=== PATIENT | female | born 1985 | race Caucasian/White ===

== ENCOUNTER 2018-04-03 07:57 | Emergency (ER) | payer BC ==
[~2018-04-03 07:57] MED LIST: ACET-3017 PO; ALB0.5 IH; ALBU8.5H IH; AMOX-362 PO; DOXY-179 PO; DUL100/5PT INH; FLUO-202 PO; GUAI-545 PO; HYDR-385 PO; IBU800 PO; IRON1TAB55 PO; METR-1 PO; MULT-865 PO; PER PO; PNV1TABL70 PO; PRO25 PO
[2018-04-03] MEDS ORDERED: NS(*) 0.9% 1000 ML BAG 1,000 ML IV ONE (08:25)
[2018-04-03 08:32] LABS: PLATELET COUNT, AUTOMATED 356 K/uL (150-450)
--- NOTE | 2018-04-03 08:39 | EKG ---
FACILITY: [facility] - [place] PATIENT NAME: DIPAK KENNEY : [id number] MR: [id number] V: [id number] EXAM DATE: ORDERING PHYSICIAN: TIMOTHY LEWSI TECHNOLOGIST: ANAMARIA Giraldo Reason : CHEST TIGHTNESS Blood Pressure : / mmHG Vent. Rate : 082 BPM Atrial Rate : 082 BPM P-R Int : 160 ms QRS Dur : 086 ms QT Int : 370 ms P-R-T Axes : 068 062 033 degrees QTc Int : 432 ms Normal sinus rhythm Normal ECG No previous ECGs available Confirmed by RONAN ZAPATA ([id number]) on 04/04/2018 6:24:18 AM Referred By: JOSHUA Confirmed By:RONAN ZAPATA
--- NOTE | 2018-04-03 09:03 | ER Report ---
History and Physical Time Seen By MD: 08:00 Hx. of Stated Complaint: think i might have an allergic reaction not sure, dizzy, chest tightness felt like my throat was closing, face got really red HPI/ROS CHIEF COMPLAINT: Lightheadedness, chest tightness, difficulty breathing HISTORY OF PRESENT ILLNESS: Patient presents because initial symptoms that began just prior to arrival while she was doing errands this morning. Patient states that she woke up feeling fine, had a diet shake that she normally has at lunch, and was walking when she had sudden onset of lightheadedness, chest tightness with shortness of breath that was located at her throat without radiation, feeling flushed, and nauseous. This lasted for approximately 10 minutes. This improved with rest. This is never happened before. Patient has been feeling generally well with exception of rhinitis for the past 2 days. She has not had any symptoms on exertion previously. She has had no recent travel, no recent illnesses, no change in medications, no history of DVT, no history of coronary artery disease, no family history of heart disease at her age REVIEW OF SYSTEMS: Constitutional: No fever, no chills. Eyes: No discharge. ENT: No sore throat. Cardiovascular: above Respiratory: above Gastrointestinal: No abdominal pain, no vomiting. Genitourinary: no dysuria Musculoskeletal: No back pain. Skin: No rashes. Neurological: No headache. Remainder of the 14 system rev: Yes Allergies: Coded Allergies: No Known Allergies (Verified Allergy, Mild, 04/03/18) Home Meds Reported Medications Multivitamin (DAILY MULTIPLE VITAMIN) 1 Each Tablet, 1 EACH PO QDAY 10/14/15 Fluoxetine Hcl (PROZAC) 20 Mg Capsule, 20 MG PO QDAY, CAPSULE 10/14/15 Reviewed Nurses Notes: Yes Hx Smoking: No Smoking Status: Never Smoker Exposure to Second Hand Smoke?: No Constitutional Vital Sign - Last 24 Hours 04/03/18 04/03/18 04/03/18 04/03/18 07:57 08:02 08:06 08:27 Temp 97.4 Pulse 88 91 85 Resp 13 B/P (MAP) 113/75 (88) 113/75 Pulse Ox 93 92 94 O2 Delivery Room Air 04/03/18 04/03/18 04/03/18 04/03/18 08:57 09:00 09:05 09:30 Pulse 72 66 B/P (MAP) 111/80 (90) 112/67 (82) 89/63 (72) Pulse Ox 98 94 04/03/18 04/03/18 04/03/18 09:35 09:46 10:00 Pulse 76 B/P (MAP) 112/73 (86) 116/75 (89) Pulse Ox 95 Physical Exam General Appearance: The patient is alert, has no immediate need for airway protection and no signs of toxicity. Eyes: Pupils equal and round no pallor or injection. ENT, Mouth: Mucous membranes are moist. Respiratory: There are no retractions, lungs are clear to auscultation. Cardiovascular: Regular rate and rhythm. Gastrointestinal: Abdomen is soft and non tender, no masses, bowel sounds normal. Neurological: alert, no gross deficits Skin: Warm and dry, no rashes. Musculoskeletal: Neck is supple non tender. Extremities are nontender, nonswollen and have full range of motion. DIFFERENTIAL DIAGNOSIS: After history and physical exam differential diagnosis was considered for chest pain including but not limited to myocardial ischemia, pericarditis pulmonary embolus, chest wall pain, pleural inflammation and pulmonary infectious causes. shortness of breath including but not limited to pulmonary infectious process, COPD, asthma, pulmonary embolus and congestive heart failure., allergic reaction, Medical Decision Making Data Points Result Diagram: 04/03/18 0809 04/03/18 0809 Laboratory Hematology Test 04/03/18 08:09 04/03/18 08:34 04/03/18 08:42 Red Blood Count 4.85 M/uL (4.17-5.56) Mean Corpuscular Volume 86.1 fL (80.0-96.0) Mean Corpuscular Hemoglobin 28.6 pg (26.0-33.0) Mean Corpuscular Hemoglobin Concent 33.2 g/dL (32.0-36.0) Red Cell Distribution Width 14.1 % (11.5-14.5) Mean Platelet Volume 7.7 fL (7.2-11.1) Neutrophils (%) (Auto) 73.2 % (39.4-72.5) Lymphocytes (%) (Auto) 22.2 % (17.6-49.6) Monocytes (%) (Auto) 4.1 % (4.1-12.4) Eosinophils (%) (Auto) 0.2 % (0.4-6.7) Basophils (%) (Auto) 0.3 % (0.3-1.4) Nucleated RBC Relative Count (auto) 0.1 /100WBC Neutrophils # (Auto) 5.3 K/uL (2.0-7.4) Lymphocytes # (Auto) 1.6 K/uL (1.3-3.6) Monocytes # (Auto) 0.3 K/uL (0.3-1.0) Eosinophils # (Auto) 0.0 K/uL (0.0-0.5) Basophils # (Auto) 0.0 K/uL (0.0-0.1) Nucleated RBC Absolute Count (auto) 0.00 K/uL Sodium Level 141 mmol/L (137-145) Potassium Level 3.7 mmol/L (3.5-5.0) Chloride Level 107 mmol/L (98-107) Carbon Dioxide Level 23 mmol/L (22-31) Blood Urea Nitrogen 16 mg/dl (7-18) Creatinine 0.80 mg/dl (0.52-1.04) Glomerular Filtration Rate Calc > 60.0 Random Glucose 91 mg/dl (75-110) Calcium Level 9.0 mg/dl (8.4-10.2) Total Bilirubin 0.5 mg/dl (0.2-1.3) Aspartate Amino Transf (AST/SGOT) 16 U/L (0-35) Alanine Aminotransferase (ALT/SGPT) 16 U/L (0-56) Alkaline Phosphatase 77 U/L (0-126) Troponin I < 0.012 ng/ml Total Protein 7.3 g/dl (6.3-8.2) Albumin 4.0 g/dl (3.5-5.0) Human Chorionic Gonadotropin, Qual Negative (NEGATIVE) Urine Color Yellow Urine Clarity Slightly-cloudy Urine pH 6.0 pH (4.8-9.5) Urine Specific [place] 1.018 Urine Protein 30 mg/dL (NEGATIVE) Urine Glucose (UA) Negative mg/dL (NEGATIVE) Urine Ketones Negative mg/dL (NEGATIVE) Urine Blood Negative (NEGATIVE) Urine Nitrite Negative (NEGATIVE) Urine Bilirubin Negative (NEGATIVE) Urine Urobilinogen Negative mg/dL (0.2-1.9) Urine Leukocyte Esterase Small (NEGATIVE) Urine RBC 7 /HPF (0-2/HPF) Urine WBC 76 /HPF (0-5/HPF) Urine Squamous Epithelial Cells Many /LPF (</=FEW) Urine Bacteria Negative /HPF (NONE-FEW) Urine Hyaline Casts Few /LPF (NONE-FEW) Urine Mucus Few /HPF (NONE-FEW) Influenza Virus Type A (PCR) Negative (NEGATIVE) Influenza Virus Type B (PCR) Negative (NEGATIVE) Chemistry Test 04/03/18 08:09 04/03/18 08:34 04/03/18 08:42 White Blood Count 7.2 k/uL (4.5-11.0) Red Blood Count 4.85 M/uL (4.17-5.56) Hemoglobin 13.8 g/dL (12.0-16.0) Hematocrit 41.7 % (34.0-47.0) Mean Corpuscular Volume 86.1 fL (80.0-96.0) Mean Corpuscular Hemoglobin 28.6 pg (26.0-33.0) Mean Corpuscular Hemoglobin Concent 33.2 g/dL (32.0-36.0) Red Cell Distribution Width 14.1 % (11.5-14.5) Platelet Count 356 K/uL (150-450) Mean Platelet Volume 7.7 fL (7.2-11.1) Neutrophils (%) (Auto) 73.2 % (39.4-72.5) Lymphocytes (%) (Auto) 22.2 % (17.6-49.6) Monocytes (%) (Auto) 4.1 % (4.1-12.4) Eosinophils (%) (Auto) 0.2 % (0.4-6.7) Basophils (%) (Auto) 0.3 % (0.3-1.4) Nucleated RBC Relative Count (auto) 0.1 /100WBC Neutrophils # (Auto) 5.3 K/uL (2.0-7.4) Lymphocytes # (Auto) 1.6 K/uL (1.3-3.6) Monocytes # (Auto) 0.3 K/uL (0.3-1.0) Eosinophils # (Auto) 0.0 K/uL (0.0-0.5) Basophils # (Auto) 0.0 K/uL (0.0-0.1) Nucleated RBC Absolute Count (auto) 0.00 K/uL Glomerular Filtration Rate Calc > 60.0 Calcium Level 9.0 mg/dl (8.4-10.2) Total Bilirubin 0.5 mg/dl (0.2-1.3) Aspartate Amino Transf (AST/SGOT) 16 U/L (0-35) Alanine Aminotransferase (ALT/SGPT) 16 U/L (0-56) Alkaline Phosphatase 77 U/L (0-126) Troponin I < 0.012 ng/ml Total Protein 7.3 g/dl (6.3-8.2) Albumin 4.0 g/dl (3.5-5.0) Human Chorionic Gonadotropin, Qual Negative (NEGATIVE) Urine Color Yellow Urine Clarity Slightly-cloudy Urine pH 6.0 pH (4.8-9.5) Urine Specific [place] 1.018 Urine Protein 30 mg/dL (NEGATIVE) Urine Glucose (UA) Negative mg/dL (NEGATIVE) Urine Ketones Negative mg/dL (NEGATIVE) Urine Blood Negative (NEGATIVE) Urine Nitrite Negative (NEGATIVE) Urine Bilirubin Negative (NEGATIVE) Urine Urobilinogen Negative mg/dL (0.2-1.9) Urine Leukocyte Esterase Small (NEGATIVE) Urine RBC 7 /HPF (0-2/HPF) Urine WBC 76 /HPF (0-5/HPF) Urine Squamous Epithelial Cells Many /LPF (</=FEW) Urine Bacteria Negative /HPF (NONE-FEW) Urine Hyaline Casts Few /LPF (NONE-FEW) Urine Mucus Few /HPF (NONE-FEW) Influenza Virus Type A (PCR) Negative (NEGATIVE) Influenza Virus Type B (PCR) Negative (NEGATIVE) Urinalysis Test 04/03/18 08:34 Urine Color Yellow Urine Clarity Slightly-cloudy Urine pH 6.0 pH (4.8-9.5) Urine Specific [place] 1.018 Urine Protein 30 mg/dL (NEGATIVE) Urine Glucose (UA) Negative mg/dL (NEGATIVE) Urine Ketones Negative mg/dL (NEGATIVE) Urine Blood Negative (NEGATIVE) Urine Nitrite Negative (NEGATIVE) Urine Bilirubin Negative (NEGATIVE) Urine Urobilinogen Negative mg/dL (0.2-1.9) Urine Leukocyte Esterase Small (NEGATIVE) Urine RBC 7 /HPF (0-2/HPF) Urine WBC 76 /HPF (0-5/HPF) Urine Squamous Epithelial Cells Many /LPF (</=FEW) Urine Bacteria Negative /HPF (NONE-FEW) Urine Hyaline Casts Few /LPF (NONE-FEW) Urine Mucus Few /HPF (NONE-FEW) EKG/Imaging EKG Interpretation 12 lead EKG: Rhythm: Normal sinus rhythm [place]: Normal QRS: Normal ST segments: Normal Monitor Interpretation: Normal Sinus Rhythm ED Course/Re-evaluation ED Course Patient presents with 10 minute episode of consolation of symptoms for which I considered acute coronary syndrome, allergic reaction, or other cause of presyncope. Her history is otherwise low likelihood for serious illness, her exam is unremarkable and nonfocal, her EKG isn't labs are normal. She does not have repeat episodes in the emergency department. Her heart score is less than 4 so she is unlikely to benefit from further cardiac evaluation at this point. Patient ambulance in the emergency department without discomfort. It is reasonable to discharge her home with strict return precautions. Decision to Disposition Date: Apr 03, 2018 Decision to Disposition Time: 10:21 Depart Departure Latest Vital Signs Vital Signs Date Time Temp Pulse Resp B/P (MAP) Pulse Ox O2 Delivery O2 Flow Rate FiO2 04/03/18 10:00 116/75 (89) 04/03/18 09:35 76 95 04/03/18 08:06 97.4 13 Room Air Impression: Primary Impression: Pre-syncope Additional Impression: Chest pain Condition: Improved Disposition: HOME OR SELF-CARE Departure Forms: ER Transition Record, Medications Reconciliation, Off Work/School Form, School or Work Release?: Work Number of days to be released: 1 Patient Portal Information Patient Instructions: Chest Pain (ED), Lightheadedness (ED) Additional Instructions: As we discussed, please return for any concerning symptoms. Please follow up with the primary doctor for further evaluation. I recommend you rest and drink plenty of fluids today. Problem Qualifiers Additional Impression: Chest pain Chest pain type: unspecified Qualified Codes: R07.9 - Chest pain, unspecified TIMOTHY LEWIS MD Apr 03, 2018 09:03
--- NOTE | 2018-04-03 09:04 | RADIOLOGY IMAGING REPORT ---
FACILITY: [facility] PATIENT NAME: Rosalba Harris : 1985 MR: [id number] V: [id number] EXAM DATE: ORDERING PHYSICIAN: TIMOTHY LEWIS TECHNOLOGIST: Location: [facility] - [place] Patient: Rosalba Harris : 1985 Visit/Account:[id number] Date of Sevice: 04/03/2018 CHEST SINGLE AP HISTORY: chest pain COMPARISON: None FINDINGS: Cardiomediastinal contours: Normal Lungs and pleura: Normal Bones/soft tissues: Normal Other findings: None significant IMPRESSION: 1. Normal chest Report Dictated By: Vipin Marr MD at 04/03/2018 8:59 AM Report E-Signed By: Vipin Marr MD at 04/03/2018 9:00 AM WSN:HELEN
[2018-04-03 10:00] VITALS: BP 116/75
== END 2018-04-05 07:29 | disposition home or self-care (01) ==
LOC: ER 08:20
DX: R55 Syncope and collapse (principal); R07.9 Chest pain, unspecified
CPT/HCPCS: 71045; 81001; 84484; 84703; 85025; 87502; 93005; 96360; 99284; J7030; 82040; 82247; 82310; 82374; 82435; 82565; 82947; 84075; 84132; 84155; 84295; 84450; 84460; 84520

== ENCOUNTER → 2018-06-08 | Outpatient (REF) | payer BC ==
[2018-06-08 18:29] LABS: PLATELET COUNT, AUTOMATED 381 K/uL (150-450)
== END ==
LOC: ZZSTITCHES 18:12
PROVIDERS: ATTEND Physician Assistant
DX: R42 Dizziness and giddiness (principal)
CPT/HCPCS: 82040; 82247; 82310; 82374; 82435; 82565; 82947; 84075; 84132; 84155; 84295; 84443; 84450; 84460; 84520; 85025

== ENCOUNTER 2018-08-04 09:53 | Emergency (ER) | payer BC ==
[2018-08-04 10:02] VITALS: BP 123/97
--- NOTE | 2018-08-04 10:20 | ER Report ---
History and Physical Time Seen By MD: 10:18 Hx. of Stated Complaint: vaginal spotting the last two weeks, positive test this am HPI/ROS Home test, but with vaginal spotting for the past week. No abdominal pain. No previous ectopic. No IUD. Remainder of the 14 system rev: Yes Allergies: Coded Allergies: No Known Allergies (Verified Allergy, Mild, 08/04/18) Home Meds Reported Medications Multivitamin (DAILY MULTIPLE VITAMIN) 1 Each Tablet, 1 EACH PO QDAY 10/14/15 Fluoxetine Hcl (PROZAC) 20 Mg Capsule, 20 MG PO QDAY, CAPSULE 10/14/15 Reviewed Nurses Notes: Yes Old Medical Records Reviewed: Yes Hx Smoking: No Smoking Status: Never Smoker Exposure to Second Hand Smoke?: No Constitutional Physical Exam General Appearance: The patient is alert, has no immediate need for airway protection and no current signs of toxicity. Eyes: Pupils equal and round no injection. Respiratory: Chest is non tender, lungs are clear to auscultation. Cardiac: regular rate and rhythm Gastrointestinal: Abdomen is soft and non tender, no masses, bowel sounds normal. : Os closed, old blood in vaginal vault, No adnexal tenderness/mass Medical Decision Making Data Points Laboratory Hematology Test 08/04/18 10:32 Red Blood Count 4.39 M/uL (4.17-5.56) Mean Corpuscular Volume 86.2 fL (80.0-96.0) Mean Corpuscular Hemoglobin 28.1 pg (26.0-33.0) Mean Corpuscular Hemoglobin Concent 32.6 g/dL (32.0-36.0) Red Cell Distribution Width 15.2 % (11.5-14.5) Mean Platelet Volume 7.2 fL (7.2-11.1) Neutrophils (%) (Auto) 68.6 % (39.4-72.5) Lymphocytes (%) (Auto) 24.0 % (17.6-49.6) Monocytes (%) (Auto) 6.4 % (4.1-12.4) Eosinophils (%) (Auto) 0.4 % (0.4-6.7) Basophils (%) (Auto) 0.6 % (0.3-1.4) Nucleated RBC Relative Count (auto) 0.0 /100WBC Neutrophils # (Auto) 4.4 K/uL (2.0-7.4) Lymphocytes # (Auto) 1.5 K/uL (1.3-3.6) Monocytes # (Auto) 0.4 K/uL (0.3-1.0) Eosinophils # (Auto) 0.0 K/uL (0.0-0.5) Basophils # (Auto) 0.0 K/uL (0.0-0.1) Nucleated RBC Absolute Count (auto) 0.00 K/uL Sodium Level 140 mmol/L (137-145) Potassium Level 4.2 mmol/L (3.5-5.0) Chloride Level 106 mmol/L (98-107) Carbon Dioxide Level 26 mmol/L (22-31) Blood Urea Nitrogen 13 mg/dl (7-18) Creatinine 0.70 mg/dl (0.52-1.04) Glomerular Filtration Rate Calc > 60.0 Random Glucose 92 mg/dl (75-110) Calcium Level 8.7 mg/dl (8.4-10.2) Total Bilirubin 0.6 mg/dl (0.2-1.3) Aspartate Amino Transf (AST/SGOT) 14 U/L (0-35) Alanine Aminotransferase (ALT/SGPT) 27 U/L (0-56) Alkaline Phosphatase 83 U/L (0-126) Total Protein 6.5 g/dl (6.3-8.2) Albumin 3.5 g/dl (3.5-5.0) Human Chorionic Gonadotropin, Quant 71 mIU/ml Chemistry Test 08/04/18 10:32 White Blood Count 6.4 k/uL (4.5-11.0) Red Blood Count 4.39 M/uL (4.17-5.56) Hemoglobin 12.3 g/dL (12.0-16.0) Hematocrit 37.8 % (34.0-47.0) Mean Corpuscular Volume 86.2 fL (80.0-96.0) Mean Corpuscular Hemoglobin 28.1 pg (26.0-33.0) Mean Corpuscular Hemoglobin Concent 32.6 g/dL (32.0-36.0) Red Cell Distribution Width 15.2 % (11.5-14.5) Platelet Count 371 K/uL (150-450) Mean Platelet Volume 7.2 fL (7.2-11.1) Neutrophils (%) (Auto) 68.6 % (39.4-72.5) Lymphocytes (%) (Auto) 24.0 % (17.6-49.6) Monocytes (%) (Auto) 6.4 % (4.1-12.4) Eosinophils (%) (Auto) 0.4 % (0.4-6.7) Basophils (%) (Auto) 0.6 % (0.3-1.4) Nucleated RBC Relative Count (auto) 0.0 /100WBC Neutrophils # (Auto) 4.4 K/uL (2.0-7.4) Lymphocytes # (Auto) 1.5 K/uL (1.3-3.6) Monocytes # (Auto) 0.4 K/uL (0.3-1.0) Eosinophils # (Auto) 0.0 K/uL (0.0-0.5) Basophils # (Auto) 0.0 K/uL (0.0-0.1) Nucleated RBC Absolute Count (auto) 0.00 K/uL Glomerular Filtration Rate Calc > 60.0 Calcium Level 8.7 mg/dl (8.4-10.2) Total Bilirubin 0.6 mg/dl (0.2-1.3) Aspartate Amino Transf (AST/SGOT) 14 U/L (0-35) Alanine Aminotransferase (ALT/SGPT) 27 U/L (0-56) Alkaline Phosphatase 83 U/L (0-126) Total Protein 6.5 g/dl (6.3-8.2) Albumin 3.5 g/dl (3.5-5.0) Human Chorionic Gonadotropin, Quant 71 mIU/ml ED Course/Re-evaluation ED Course Benign abdominal exam. No active bleeding. Os closed. No ectopic RF. I think an US would be futile at this point given the HCG quant. I counseled the pt. that an ectopic still was not ruled out. I gave her strict return precautions. She will follow up with her OB provider in 48 hours for a repeat HCG. Decision to Disposition Date: Aug 04, 2018 Decision to Disposition Time: 12:39 Depart Departure Latest Vital Signs Impression: Primary Impression: Vaginal bleeding during Condition: Improved Disposition: HOME OR SELF-CARE Patient Instructions: Threatened Miscarriage (ED) Additional Instructions: Follow up this week with your OB doctor for a repeat exam and repeat HCG. ALICE LEWIS MD Aug 04, 2018 10:20
[2018-08-04 10:48] LABS: PLATELET COUNT, AUTOMATED 371 K/uL (150-450)
== END 2018-08-04 12:48 | disposition home or self-care (01) ==
LOC: ER 10:47
DX: O20.9 Hemorrhage in early pregnancy, unspecified (principal)
CPT/HCPCS: 36415; 82040; 82247; 82310; 82374; 82435; 82565; 82947; 84075; 84132; 84155; 84295; 84450; 84460; 84520; 84702; 85025; 86900; 86901; 99282